=== PATIENT | female | born 1975 | race Caucasian/White ===

== ENCOUNTER 2020-03-24 14:16 | Outpatient (CLI) | payer BC ==
--- NOTE | 2020-03-24 16:23 | RAD ---
RIGHT FOOT THREE VIEWS: 03/24/20 No fracture or periosteal reaction was seen. The joints appear normal. A small calcaneal spur was see n. IMPRESSION: No acute finding. POS: HOME
== END 2020-03-24 14:17 | disposition home or self-care (01) ==
LOC: BURRAD 14:16
PROVIDERS: ATTEND Family Medicine
DX: M79.671 Pain in right foot (principal)